=== PATIENT | female | born 1950 | race African-American/Black ===

== ENCOUNTER 2016-11-05 10:11 | Emergency (ER) | payer MEDICARE, BC ==
[~2016-11-05] VITALS: Ht 154.9 cm; Wt 62.1 kg
[2016-11-05 10:18] VITALS: BP 186/70
== END 2016-11-05 12:14 | disposition home or self-care (01) ==
LOC: ER 10:11
DX: J20.9 Acute bronchitis, unspecified (principal)
CPT/HCPCS: 71020